=== PATIENT | male | born 2000 | race Caucasian/White ===

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

== ENCOUNTER 2020-01-23 10:08 | Emergency (ER) | payer BC ==
[2020-01-23] MEDS ORDERED: Sodium Chloride 0.9% 1,000 ML IV STA (10:25)
[2020-01-23] MEDS ORDERED: Sodium Chloride 0.9% 10 ML Syringe FLUSH PRN (10:25)
[2020-01-23] MEDS ORDERED: Sodium Chloride 0.9% 10 ML Syringe FLUSH ONE (11:20)
[2020-01-23] MEDS ORDERED: Iopamidol 612 MG/ML 100 ML Bottle IVPUSH ONE (11:20)
[2020-01-23] MEDS ORDERED: Diatrizoate Meglumine/Diatrizoate Sodium 37% 120 ML Bottle PO ONE (11:41)
--- NOTE | 2020-01-23 12:03 | CT ---
CT abdomen and pelvis Technique: Multiple axial sections were obtained from above the dome of the diaphragm inferiorly through the pubic symphysis. Intravenous and oral contrast was utilized. Comparison: No prior abdominal imaging. Findings: Visualized lung bases show nothing acute. Spleen appears enlarged with a length of 17.6 cm. Several areas of diminished perfusion are seen within the upper spleen. Liver contains no focal abnormality. Gallbladder is distended most likely due to fasting. No calcified gallstones are seen. Adrenal glands show no nodule. Kidneys show symmetric contrast enhancement without hydronephrosis or mass. Pancreas is within normal limits. Aorta shows no aneurysm. No retroperitoneal adenopathy or mesenteric abnormalities are seen. No pelvic mass or adenopathy is seen. Mild increased stool is seen throughout the colon. Appendix is felt to be visualized and is normal in size. Bone window settings were reviewed which appear within normal limits for the patient's age. Impression: 1. Enlarged spleen. Several areas of diminished perfusion are seen within the upper spleen possibly due to altered blood flow secondary to the enlarged spleen. Spleen enlargement is nonspecific but please exclude mononucleosis in a patient of this age. 2. No additional abnormality is seen on CT study of the abdomen and pelvis. Diagnostic code #3 This report was dictated in [place] Standard Time
[2020-01-23] MEDS ORDERED: cefTRIAXone 2 GM in Sodium Chloride 0.9% 100 ML IV ONE ×2 (12:14→12:25)
[2020-01-23] MEDS ORDERED: Sodium Chloride 0.9% 1,000 ML IV ONE (12:41)
[2020-01-23] MEDS ORDERED: Cefepime 2 GM in Premix Bag 1 BAG IV ONE (12:42)
--- NOTE | 2020-01-23 12:44 | EDM.PDOC ---
ED HPI GENERAL MEDICAL PROBLEM - General Chief Complaint: Syncope Stated Complaint: PASSED OUT AT CLINIC WHILE WAITING FOR APPT Time Seen by Provider: 01/23/20 10:21 Source of Information: Reports: Patient, Family History Limitations: Reports: No Limitations - History of Present Illness INITIAL COMMENTS - FREE TEXT/NARRATIVE: The patient presents with near syncope, fever, sore throat and generalized weakness. He was diagnosed with mono last month. He was getting a little better and then last week started to feel worse again. He was seen by his provider on Tuesday and diagnosed with strep. An US was done of his spleen and it looked good. He is worse now. He is lightheaded when standing. He is pale. He he has a fever and sore throat. He has no cough, congestion or runny nose. He has no chest pain or shortness of breath. He does have some dull pain in his abdomen and times. He has no nausea or vomiting. He has no medical problems. Onset: Gradual Duration: Week(s): Location: Reports: Other (throat) Quality: Reports: Burning Severity: Moderate Improves with: Reports: None Worsens with: Reports: None Associated Symptoms: Reports: Fever/Chills. Denies: Chest Pain, Cough, Headaches, Nausea/Vomiting, Shortness of Breath - Related Data Allergies Allergy/AdvReac Type Severity Reaction Status Date / Time No Known Allergies Allergy Verified 12/08/19 22:09 Home Meds: Home Meds . [No Known Home Meds] 12/03/19 [History] Past Medical History - Past Health History Medical/Surgical History: Denies Medical/Surgical History HEENT History: Reports: None Cardiovascular History: Reports: None Respiratory History: Reports: None Gastrointestinal History: Reports: None Genitourinary History: Reports: None Musculoskeletal History: Reports: None Neurological History: Reports: None Psychiatric History: Reports: None Endocrine/Metabolic History: Reports: None Hematologic History: Reports: None Immunologic History: Reports: None Oncologic (Cancer) History: Reports: None Dermatologic History: Reports: None - Infectious Disease History Infectious Disease History: Reports: None - Past Surgical History Head Surgeries/Procedures: Reports: None HEENT Surgical History: Reports: None Cardiovascular Surgical History: Reports: None Respiratory Surgical History: Reports: None GI Surgical History: Reports: None Male Surgical History: Reports: None Endocrine Surgical History: Reports: None Neurological Surgical History: Reports: None Oncologic Surgical History: Reports: None Dermatological Surgical History: Reports: None Social & Family History - Family History Family Medical History: Noncontributory - Tobacco Use Smoking Status *Q: Never Smoker Second Hand Smoke Exposure: No - Caffeine Use Caffeine Use: Reports: Coffee, Soda - Recreational Drug Use Recreational Drug Use: No - Living Situation & Occupation Living situation: Reports: Single Occupation: Unemployed ED ROS GENERAL - Review of Systems Review Of Systems: See Below Constitutional: Reports: Fever, Chills, Weakness, Fatigue HEENT: Reports: No Symptoms Respiratory: Reports: No Symptoms Cardiovascular: Reports: Lightheadedness. Denies: Chest Pain Endocrine: Reports: No Symptoms GI/Abdominal: Reports: Abdominal Pain. Denies: Nausea, Vomiting : Reports: No Symptoms Musculoskeletal: Reports: No Symptoms Skin: Reports: No Symptoms - Physical Exam Exam: See Below Exam Limited By: No Limitations General Appearance: Alert, No Apparent Distress Ears: Normal External Exam Nose: Normal Inspection Throat/Mouth: Other (Erythema and edema of the oropharynx) Head Exam: Atraumatic, Normocephalic Neck: Normal Inspection Respiratory/Chest: No Respiratory Distress, Lungs Clear, Normal Breath Sounds Cardiovascular: Regular Rate, Rhythm, No Edema, No Murmur GI/Abdominal: Soft, No Mass, Tender (Mild upper abdominal pain and enlarged spleen) Course - Vital Signs Last Recorded V/S: Last Vital Signs Temp 103.7 F H 01/23/20 13:48 Pulse 105 H 01/23/20 13:48 Resp 24 H 01/23/20 13:48 BP 110/40 L 01/23/20 13:48 Pulse Ox 100 01/23/20 12:11 - Orders/Labs/Meds Orders: Active Orders 24 hr Category Date Time Status Peripheral IV Care [RC] . DIRECTED Care 01/23/20 10:25 Active CULTURE BLOOD [BC] Stat Lab 01/23/20 10:55 Received CULTURE BLOOD [BC] Stat Lab 01/23/20 11:05 Received PATIENT RETYPE [BBK] Routine Lab 01/23/20 12:38 Ordered RED BLOOD CELLS LP [BBK] Stat Lab 01/23/20 10:55 Results TYPE AND SCREEN [BBK] Stat Lab 01/23/20 10:55 Results Ondansetron [Zofran] Med 01/23/20 13:58 Once 4 mg IVPUSH ONETIME ONE Sodium Chloride 0.9% [Normal Saline] 250 ml Med 01/23/20 13:00 Active IV ASDIRECTED Sodium Chloride 0.9% [Saline Flush] Med 01/23/20 10:25 Active 10 ml FLUSH ASDIRECTED PRN Vancomycin 1.75 gm Med 01/23/20 13:30 Active Sodium Chloride 0.9% [Normal Saline] 500 ml IV ONETIME Blood Culture x2 Reflex Set [OM.PC] Stat Ot 01/23/20 10:26 Ordered Peripheral IV Insertion Adult [OM.PC] Stat Ot 01/23/20 10:25 Ordered Severe Sepsis Onset Time [OM.PC] Stat Ot 01/23/20 12:14 Ordered Transfuse RBC [Transfuse Red Blood Cells] [COMM] Stat Ot 01/23/20 11:27 Ordered Medication Orders Sodium Chloride (Normal Saline) 250 mls @ 25 mls/hr IV ASDIRECTED ELIN Last Admin: 01/23/20 13:18 Dose: 25 mls/hr Vancomycin HCl 1.75 gm/ Sodium (Chloride) 500 mls @ 250 mls/hr IV ONETIME ONE Stop: 01/23/20 15:29 Last Admin: 01/23/20 13:42 Dose: 250 mls/hr Sodium Chloride (Saline Flush) 10 ml FLUSH ASDIRECTED PRN PRN Reason: Keep Vein Open Last Admin: 01/23/20 10:59 Dose: 10 ml Labs: Laboratory Tests 01/23/20 01/23/20 01/23/20 Range/Units 10:55 10:55 10:55 WBC 3.33 L (4.23-9.07) K/mm3 RBC 2.28 L (4.63-6.08) M/mm3 Hgb 6.2 L* D (13.7-17.5) gm/dl Hct 17.6 L (40.1-51.0) % MCV 77.2 L D (79.0-92.2) fl MCH 27.2 (25.7-32.2) pg MCHC 35.2 (32.2-35.5) g/dl RDW Std Deviation 35.2 (35.1-43.9) fL Plt Count 78 L (163-337) K/mm3 MPV 12.7 H (9.4-12.3) fl Neut % (Auto) 52.6 (34.0-67.9) % Lymph % (Auto) 35.4 (21.8-53.1) % [place] % (Auto) 10.2 (5.3-12.2) % Eos % (Auto) 0 L (0.8-7.0) Baso % (Auto) 0.3 (0.1-1.2) % Neut # (Auto) 1.75 L (1.78-5.38) K/mm3 Lymph # (Auto) 1.18 L (1.32-3.57) K/mm3 [place] # (Auto) 0.34 (0.30-0.82) K/mm3 Eos # (Auto) 0.00 L (0.04-0.54) K/mm3 Baso # (Auto) 0.01 (0.01-0.08) K/mm3 Manual Slide Review Abnormal smear PT (9.7-12.0) SECONDS INR Sodium 133 L (136-145) mEq/L Potassium 4.0 (3.5-5.1) mEq/L Chloride 99 (98-107) mEq/L Carbon Dioxide 18 L (21-32) mEq/L Anion Gap 20.0 H (5-15) BUN 36 H D (7-18) mg/dL Creatinine 1.8 H (0.7-1.3) mg/dL Est Cr Clr Drug Dosing 67.76 mL/min Estimated GFR (MDRD) 49 (>60) mL/min BUN/Creatinine Ratio 20.0 H (14-18) Glucose 113 H (74-106) mg/dL Lactic Acid 3.5 H* (0.4-2.0) mmol/L Calcium 7.7 L (8.5-10.1) mg/dL Total Bilirubin 0.9 (0.2-1.0) mg/dL AST 97 H (15-37) U/L ALT 73 H (16-63) U/L Alkaline Phosphatase 64 (46-116) U/L C-Reactive Protein 12.4 H* (<1.0) mg/dL Total Protein 7.1 (6.4-8.2) g/dl Albumin 3.2 L (3.4-5.0) g/dl Globulin 3.9 gm/dL Albumin/Globulin Ratio 0.8 L (1-2) Lipase 150 (73-393) U/L Urine Color (Yellow) Urine Appearance (Clear) Urine pH (5.0-8.0) Ur Specific [place] (1.005-1.030) Urine Protein (Negative) Urine Glucose (UA) (Negative) Urine Ketones (Negative) Urine Occult Blood (Negative) Urine Nitrite (Negative) Urine Bilirubin (Negative) Urine Urobilinogen (0.2-1.0) Ur Leukocyte Esterase (Negative) Urine RBC (0-5) /hpf Urine WBC (0-5) /hpf Ur Squamous Epith Cells (0-5) /hpf Urine Bacteria (FEW) /hpf Urine Mucus (FEW) /hpf Blood Type Gel Antibody Screen Crossmatch 01/23/20 01/23/20 01/23/20 Range/Units 10:55 10:55 13:00 WBC (4.23-9.07) K/mm3 RBC (4.63-6.08) M/mm3 Hgb (13.7-17.5) gm/dl Hct (40.1-51.0) % MCV (79.0-92.2) fl MCH (25.7-32.2) pg MCHC (32.2-35.5) g/dl RDW Std Deviation (35.1-43.9) fL Plt Count (163-337) K/mm3 MPV (9.4-12.3) fl Neut % (Auto) (34.0-67.9) % Lymph % (Auto) (21.8-53.1) % [place] % (Auto) (5.3-12.2) % Eos % (Auto) (0.8-7.0) Baso % (Auto) (0.1-1.2) % Neut # (Auto) (1.78-5.38) K/mm3 Lymph # (Auto) (1.32-3.57) K/mm3 [place] # (Auto) (0.30-0.82) K/mm3 Eos # (Auto) (0.04-0.54) K/mm3 Baso # (Auto) (0.01-0.08) K/mm3 Manual Slide Review PT 16.5 H (9.7-12.0) SECONDS INR 1.55 Sodium (136-145) mEq/L Potassium (3.5-5.1) mEq/L Chloride (98-107) mEq/L Carbon Dioxide (21-32) mEq/L Anion Gap (5-15) BUN (7-18) mg/dL Creatinine (0.7-1.3) mg/dL Est Cr Clr Drug Dosing mL/min Estimated GFR (MDRD) (>60) mL/min BUN/Creatinine Ratio (14-18) Glucose (74-106) mg/dL Lactic Acid (0.4-2.0) mmol/L Calcium (8.5-10.1) mg/dL Total Bilirubin (0.2-1.0) mg/dL AST (15-37) U/L ALT (16-63) U/L Alkaline Phosphatase (46-116) U/L C-Reactive Protein (<1.0) mg/dL Total Protein (6.4-8.2) g/dl Albumin (3.4-5.0) g/dl Globulin gm/dL Albumin/Globulin Ratio (1-2) Lipase (73-393) U/L Urine Color Yellow (Yellow) Urine Appearance Clear (Clear) Urine pH 6.0 (5.0-8.0) Ur Specific [place] 1.015 (1.005-1.030) Urine Protein 1+ H (Negative) Urine Glucose (UA) Negative (Negative) Urine Ketones Negative (Negative) Urine Occult Blood Negative (Negative) Urine Nitrite Negative (Negative) Urine Bilirubin Negative (Negative) Urine Urobilinogen 1.0 (0.2-1.0) Ur Leukocyte Esterase Negative (Negative) Urine RBC 0-5 (0-5) /hpf Urine WBC 0-5 (0-5) /hpf Ur Squamous Epith Cells 0-5 (0-5) /hpf Urine Bacteria Few (FEW) /hpf Urine Mucus Few (FEW) /hpf Blood Type A POSITIVE Gel Antibody Screen Negative Crossmatch See Detail Meds: Medications Generic Name Dose Route Start Last Admin Trade Name Freq PRN Reason Stop Dose Admin Sodium Chloride 250 mls @ 25 mls/hr 01/23/20 13:00 01/23/20 13:18 Normal Saline IV 25 mls/hr ASDIRECTED ELIN Administration Vancomycin HCl 1.75 gm/ Sodium 500 mls @ 250 mls/hr 01/23/20 13:30 01/23/20 13:42 Chloride IV 02/26/20 15:29 250 mls/hr ONETIME ONE Administration Sodium Chloride 10 ml 01/23/20 10:25 01/23/20 10:59 Saline Flush FLUSH 10 ml ASDIRECTED PRN Administration Keep Vein Open Discontinued Medications Generic Name Dose Route Start Last Admin Trade Name Freq PRN Reason Stop Dose Admin Diatrizoate Meglum/Diatrizoate Sod 90 ml 01/23/20 11:41 01/23/20 11:42 Gastrografin 37% PO 01/23/20 11:42 90 ml ONETIME ONE Administration Sodium Chloride 1,000 mls @ 1,000 mls/hr 01/23/20 10:25 01/23/20 10:59 Normal Saline IV 01/23/20 11:24 1,000 mls/hr .BOLUS STA Administration Ceftriaxone Sodium 2 gm/ 100 mls @ 200 mls/hr 01/23/20 12:14 Sodium Chloride IV 01/23/20 12:43 STAT ONE Ceftriaxone Sodium 2 gm/ 100 mls @ 200 mls/hr 01/23/20 12:25 01/23/20 12:33 Sodium Chloride IV 01/23/20 12:43 200 mls/hr STAT ONE Administration Cefepime HCl 2 gm/ Premix 50 mls @ 100 mls/hr 01/23/20 12:42 01/23/20 13:54 IV 01/23/20 13:11 100 mls/hr ONETIME ONE Administration Sodium Chloride 1,000 mls @ 1,000 mls/hr 01/23/20 12:41 01/23/20 13:09 Normal Saline IV 01/23/20 13:40 1,000 mls/hr ONETIME ONE Administration Ibuprofen 600 mg 01/23/20 13:08 01/23/20 13:14 Motrin PO 01/23/20 13:09 600 mg ONETIME ONE Administration Iopamidol 100 ml 01/23/20 11:20 01/23/20 11:40 Isovue-300 (61%) IVPUSH 01/23/20 11:21 100 ml ONETIME ONE Administration Sodium Chloride 10 ml 01/23/20 11:20 01/23/20 11:40 Saline Flush FLUSH 01/23/20 11:21 10 ml ONETIME ONE Administration - Re-Assessments/Exams Free Text/Narrative Re-Assessment/Exam: 01/23/20 14:04 I ordered an IV NS 1L bolus, labs, blood culture, lactic acid and a CT of his abdomen and pelvis. His WBC is low at 3.33. His Hgb is low at 6.2. I ordered 2 units of PRBCs. His platelets are low are 78. His Na is low at 133. His anion gap is elevated at 20. His creatinine is elevated at 1.8. His lactic acid is elevated at 3.5. His AST is elevated at 97. His ALT is elevated at 73. His CRP is elevated at 12.4. His CT shows enlarged spleen. Several areas of diminished perfusion are seen within the upper spleen possibly due to altered blood flow secondary to the enlarged spleen. Spleen enlargement is nonspecific but please exclude mononucleosis in a patient of this age. No additional abnormality is seen on CT study of the abdomen and pelvis. The patient is septic. I have ordered rocephin. He got the fluid bolus of 1L. I have ordered another liter and I did a sepsis focused assessment and he is doing good. We have not beds at our hospital. I called [facility] and talked with Dr Burns and he accepted the patient. He did want another lactic acid. Another liter of NS like I ordered, cefepime 2 grams IV and vancomycin 1.75. They did not have a bed yet. They will call us when they have one. His temp went up so I ordered motrin 600mg PO. Departure - Departure Time of Disposition: 14:15 Disposition: DC/Tfer to Acute Hospital 02 Condition: Serious Clinical Impression: Strep pharyngitis, Mononucleosis syndrome, Spleen enlarged, Dehydration Sepsis Qualifiers: Sepsis type: sepsis due to unspecified organism Sepsis acute organ dysfunction status: unspecified Qualified Code(s): A41.9 - Sepsis, unspecified organism Anemia Qualifiers: Anemia type: unspecified type Qualified Code(s): D64.9 - Anemia, unspecified - Discharge Information Referrals: Nathan Mayo MD [Primary Care Provider] - Forms: ED Department Discharge Sepsis Event Note - Evaluation Sepsis Screening Result: Possible Sepsis Risk - Focused Exam Vital Signs: Vital Signs Temp Temp Pulse Resp BP Pulse Ox 01/23/20 13:48 103.7 F H 105 H 24 H 110/40 L 01/23/20 13:43 105.3 F H 101 H 26 H 109/40 L 01/23/20 13:27 105.1 F H 107 H 27 H 121/52 L 01/23/20 13:14 106.4 F H 01/23/20 12:11 101.2 F H 112 H 20 112/42 L 100 01/23/20 10:23 99.3 F 103 H 20 118/49 L 97 Date Exam was Performed: 01/23/20 Time Exam was Performed: 13:58 - My Orders Last 24 Hours: My Active Orders 01/23/20 10:25 Peripheral IV Care [RC] . DIRECTED Sodium Chloride 0.9% [Saline Flush] 10 ml FLUSH ASDIRECTED PRN Peripheral IV Insertion Adult [OM.PC] Stat 01/23/20 10:26 Blood Culture x2 Reflex Set [OM.PC] Stat 01/23/20 10:55 CULTURE BLOOD [BC] Stat RED BLOOD CELLS LP [BBK] Stat TYPE AND SCREEN [BBK] Stat 01/23/20 11:05 CULTURE BLOOD [BC] Stat 01/23/20 11:27 Transfuse RBC [Transfuse Red Blood Cells] [COMM] Stat 01/23/20 12:14 Severe Sepsis Onset Time [OM.PC] Stat 01/23/20 12:38 PATIENT RETYPE [BBK] Routine 01/23/20 13:00 Sodium Chloride 0.9% [Normal Saline] 250 ml IV ASDIRECTED 01/23/20 13:30 Vancomycin 1.75 gm Sodium Chloride 0.9% [Normal Saline] 500 ml IV ONETIME 01/23/20 13:58 Ondansetron [Zofran] 4 mg IVPUSH ONETIME ONE - Assessment/Plan Last 24 Hours: My Active Orders 01/23/20 10:25 Peripheral IV Care [RC] . DIRECTED Sodium Chloride 0.9% [Saline Flush] 10 ml FLUSH ASDIRECTED PRN Peripheral IV Insertion Adult [OM.PC] Stat 01/23/20 10:26 Blood Culture x2 Reflex Set [OM.PC] Stat 01/23/20 10:55 CULTURE BLOOD [BC] Stat RED BLOOD CELLS LP [BBK] Stat TYPE AND SCREEN [BBK] Stat 01/23/20 11:05 CULTURE BLOOD [BC] Stat 01/23/20 11:27 Transfuse RBC [Transfuse Red Blood Cells] [COMM] Stat 01/23/20 12:14 Severe Sepsis Onset Time [OM.PC] Stat 01/23/20 12:38 PATIENT RETYPE [BBK] Routine 01/23/20 13:00 Sodium Chloride 0.9% [Normal Saline] 250 ml IV ASDIRECTED 01/23/20 13:30 Vancomycin 1.75 gm Sodium Chloride 0.9% [Normal Saline] 500 ml IV ONETIME 01/23/20 13:58 Ondansetron [Zofran] 4 mg IVPUSH ONETIME ONE
[2020-01-23] MEDS ORDERED: Sodium Chloride 0.9% 250 ML IV SCH (13:00)
[2020-01-23] MEDS ORDERED: Ibuprofen 600 MG Tab PO ONE (13:08)
[2020-01-23] MEDS ORDERED: Vancomycin 1.75 GM in Sodium Chloride 0.9% 500 ML IV ONE (13:30)
[2020-01-23] MEDS ORDERED: Ondansetron 4 MG/2 ML SDV IVPUSH ONE (13:58)
[2020-01-23] MEDS ORDERED: HYDROmorphone 0.5 MG/0.5 ML Syringe IVPUSH ONE (14:06)
[2020-01-23] MEDS ORDERED: Sodium Chloride 0.9% 1,000 ML IV SCH (14:15)
[2020-01-23] MEDS ORDERED: HYDROmorphone 1 MG/ML Syringe IVPUSH ONE (14:31)
== END 2020-01-23 14:57 ==
LOC: JD.ED 10:08
DX: A41.9 Sepsis, unspecified organism (principal); J02.0 Streptococcal pharyngitis; B27.90 Infectious mononucleosis, unspecified without complication; R16.1 Splenomegaly, not elsewhere classified; D64.9 Anemia, unspecified; E86.0 Dehydration
CPT/HCPCS: 36415; 36430; 74177; 80053; 81001; 83605; 83690; 85025; 85610; 86140; 86850; 86900; 86901; 86922; 87040; 96361; 96365; 96367; 96368; 96375; 99285; A9270; J0692; J0696; J1170; J2405; J3370; J7030; J7040; J7050; P9016; Q9963; Q9967

== ENCOUNTER 2022-01-26 18:07 | Emergency (ER) | payer BC ==
[2022-01-26] MEDS ORDERED: Sodium Chloride 0.9% 1,000 ML IV ONE (19:17)
[2022-01-26] MEDS ORDERED: Ondansetron 4 MG/2 ML SDV IVPUSH ONE (19:17)
[2022-01-26 20:35] LABS: STREP A BY PCR NOT DETECTED (NOT DETECT)
[2022-01-26 20:50] LABS: CORONAVIRUS COVID-19 NAA NEGATIVE (NEGATIVE)
== END 2022-01-26 21:15 | disposition home or self-care (01) ==
LOC: JD.ED 18:07
DX: A08.4 Viral intestinal infection, unspecified (principal); Z20.822 Contact with and (suspected) exposure to COVID-19
CPT/HCPCS: 0240U; 36415; 80053; 83735; 85007; 85027; 86140; 87651; 96374; 99284; J2405; J7030

== ENCOUNTER 2023-09-29 09:18 | Day surgery (SDC) | payer BC ==
[~2023-09-29 09:18] MED LIST: Dexamethasone 4 MG/ML 5 ML MDV ONE; EPINEPHrine 1 MG/ML SDV ONE; Ketorolac 30 MG/ML SDV ONE; Lactated Ringers 1,000 ML IV SCH; Lidocaine 1% 5 ML VIAL ONE; Midazolam 1 MG/ML 2 ML SDV ONE; Ondansetron 4 MG/2 ML SDV ONE; Propofol 200 MG/20 ML SDV ONE; Ropivacaine 0.5% 5 MG/ML 30 ML SDV ONE; Sodium Chloride 0.9% 10 ML Syringe FLUSH PRN; Sodium Chloride 0.9% 10 ML Syringe FLUSH SCH; ceFAZolin 2 GM Vial ONE; fentaNYL 250 MCG/5 ML SDV ONE
[2023-09-29] MEDS ORDERED: HYDROmorphone 0.5 MG/0.5 ML Syringe IVPUSH PRN (11:00)
[2023-09-29] MEDS ORDERED: Ondansetron 4 MG/2 ML SDV IVPUSH PRN (11:00)
[2023-09-29] MEDS ORDERED: fentaNYL 100 MCG/2 ML SDV IVPUSH PRN (11:00)
[2023-09-29] MEDS ORDERED: Bupivacaine 0.25% 10 ML SDV ONE (11:11)
[2023-09-29] MEDS ORDERED: EPINEPHrine 1 MG/ML SDV ONE (11:11)
[2023-09-29] MEDS ORDERED: Dexmedetomidine 200 MCG/2 ML SDV ONE (11:32)
[2023-09-29] MEDS ORDERED: Lidocaine 1% PF 2 ML SDV ONE (11:43)
[2023-09-29] MEDS ORDERED: Propofol 200 MG/20 ML SDV ONE (12:17)
[2023-09-29] MEDS ORDERED: Lactated Ringers 1,000 ML ONE (13:00)
[2023-09-29] MEDS ORDERED: HYDROmorphone 0.5 MG/0.5 ML Syringe ONE (13:45)
[2023-09-29] MEDS ORDERED: fentaNYL 100 MCG/2 ML SDV ONE (14:05)
[2023-09-29] MEDS ORDERED: Acetaminophen/HYDROcodone 325-5 MG Tab PO PRN (14:16)
== END 2023-09-29 15:45 | disposition home or self-care (01) ==
LOC: JD.SDS 09:18
PROVIDERS: ATTEND Orthopaedic Surgery
DX: S83.512A Sprain of anterior cruciate ligament of left knee, initial encounter (principal); S83.242A Other tear of medial meniscus, current injury, left knee, initial encounter; Z79.82 Long term (current) use of aspirin; Z79.899 Other long term (current) drug therapy; X58.XXXA Exposure to other specified factors, initial encounter
CPT/HCPCS: 29888; 64447; 76000; C1713; J0171; J0690; J1100; J1170; J1885; J2250; J2405; J2704; J2795; J3010; J3490; J7120; 01400